=== PATIENT | female | born 2000 | race Caucasian/White ===

== ENCOUNTER 2020-08-03 09:22 | Outpatient (REF) | payer OTHER, SELFPAY | END 2020-08-03 09:23 | disposition home or self-care (01) | LOC: HO.LAB 09:22 | PROVIDERS: Visit Provider Internal Medicine | DX: Z20.828 Contact with and (suspected) exposure to other viral communicable diseases (principal) | CPT/HCPCS: C9803; U0003 ==

== ENCOUNTER 2021-03-19 17:53 | Emergency (ER) | payer OTHER, SELFPAY ==
--- NOTE | 2021-03-19 | ECG_ITS ---
Test Reason : OD Blood Pressure : / mmHG Vent. Rate : 071 BPM Atrial Rate : 071 BPM P-R Int : 150 ms QRS Dur : 098 ms QT Int : 396 ms P-R-T Axes : 066 093 053 degrees QTc Int : 430 ms Poor data quality, interpretation may be adversely affected Normal sinus rhythm with sinus arrhythmia Rightward axis Cannot rule out Anterior infarct (cited on or before 19-MAR-2021) Abnormal ECG When compared with ECG of 19-MAR-2021 19:35, No significant change was found Referred By: Dana Coburn Electronically Signed By:ANTHONY WATERS MD
--- NOTE | 2021-03-19 17:56 | ECG_ITS ---
Test Reason : OD Blood Pressure : / mmHG Vent. Rate : 073 BPM Atrial Rate : 073 BPM P-R Int : 136 ms QRS Dur : 100 ms QT Int : 394 ms P-R-T Axes : 068 095 044 degrees QTc Int : 434 ms Normal sinus rhythm Possible Left atrial enlargement Rightward axis Cannot rule out Anterior infarct , age undetermined Abnormal ECG No previous ECGs available Referred By: Dana Coburn Electronically Signed By:ANTHONY WATERS MD
[2021-03-19 17:57] VITALS: BP 119/78; PULSE 77; RESP 16; TEMP 36.8; O2SAT 100; BMI 19.6
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
--- NOTE | 2021-03-19 18:28 | PC.NURSE ---
pateint mother called for update. per patient its ok to speak to mother about her care. mother updated on plan.
[2021-03-19 19:02] VITALS: BP 104/72; PULSE 98; RESP 16; O2SAT 99
[2021-03-19 20:21] LABS: MANUAL DIFF FLAG NO
[2021-03-19 20:27] LABS: Basophils Percent Auto 0.2 % (0-2); Eosinophils Percent Auto 0.2 % (0-4); Hematocrit 37.9 % (37-47); Hemoglobin 13.2 g/dl (12.0-16.0); Imm Gran Abs Auto 0.05 X10*3/uL (0.00-0.03); Imm Gran Pct Auto 0.4 % (0.0-0.4); Lymphocytes Absolute Auto 2.1 X10*3/uL (1.2-4.9); Lymphocytes Percent Auto 17.2 % (20-40); Mean Corpuscular HGB Conc 34.8 g/dl (31.0-35.0); Mean Corpuscular Hemoglobin 30.7 pg (27.0-33.0); Mean Corpuscular Volume 88.1 fL (80-98); Mean Platelet Volume 11.1 fL (9.4-12.3); Monocytes Absolute Auto 0.9 X10*3/uL (0.1-1.2); Neutrophils Absolute Auto 9.2 X10*3/uL (2.0-8.3); Platelet Count 221 X10*3/uL (160-400); White Blood Count 12.2 X10*3/uL (4.8-10.8)
[2021-03-19 20:52] LABS: Anion Gap 15 (12-20); Blood Urea Nitrogen 12 mg/dL (9-16); Calcium 9.8 mg/dL (8.4-10.2); Carbon Dioxide 19 mmol/L (22-29); Chloride 109 mmol/L (96-108); Creatinine Clr Calc Pharmacy 84.4; Estimated Glomerular Filt Rate > 60; Ethanol < 10 mg/dL; Glucose Random 87 mg/dL (60-115); Magnesium 2.1 mg/dL (1.6-2.6); Sodium 139 mmol/L (135-145)
[2021-03-19 20:52] LABS: Amphetamine Screen Urine Not Detected (Not Detect); Barbiturates, Urine Not Detected (Not Detect); Benzodiazepines Screen Urine Not Detected (Not Detect); Cannabinoid Screen Urine POSITIVE (Not Detect); Cocaine Screen Urine Not Detected (Not Detect); Opiate Screen Urine Not Detected (Not Detect); Phencyclidine Screen Urine Not Detected (Not Detect)
[2021-03-19 20:55] LABS: Acetaminophen LAB < 1 mcg/mL (<30); Alanine Aminotransferase 15 U/L (0-31); Albumin Level 4.6 g/dL (3.5-5.0); Alkaline Phosphatase 57 U/L (39-117); Aspartate Amino Transferase 23 U/L (5-31); Bilirubin Direct 0.6 mg/dL (0.0-0.5); Bilirubin Total 1.7 mg/dL (0.0-1.0); Salicylate < 5.0 mg/dL (15-30); Total Protein 7.2 g/dL (6.5-8.0)
[2021-03-19 20:57] VITALS: BP 114/71; PULSE 71; RESP 16; O2SAT 98
[2021-03-19 20:58] LABS: Troponin-I High Sensitivity < 3.5 ng/L (<3.5-17.0)
[2021-03-19 21:04] LABS: Glucose Urine UA NEG (NEG); Leukocyte Esterase Urine NEG (NEG); Nitrite Urine NEG (NEG); Specific Gravity - Urine >= 1.030 (1.005-1.025); Urine Blood TRACE (NEG); Urine Ketones >=80 MG/DL (NEG); Urine Protein 1+ MG/DL (NEG-TRACE)
[2021-03-19 21:22] LABS: Appearance Urine CLOUDY; Color Urine YELLOW
[2021-03-19 21:25] LABS: UPreg QC Valid YES; Urine Pregnancy NEGATIVE (NEGATIVE)
[2021-03-19 21:56] LABS: Bacteria Urine TRACE /LPF; RBC Urine 0-2 /HPF (0); Squamous Epithelial Cell Urine TRACE /LPF; WBC Urine 0-2 /HPF (0-4)
[2021-03-19 21:57] LABS: Granular Casts Urine 0-2 /LPF
[2021-03-19 21:58] LABS: Amorphous Sediment Urine 2+ /LPF
[2021-03-20 00:15] VITALS: BP 131/80; PULSE 94; RESP 16; TEMP 36.8; O2SAT 97
[2021-03-20 00:18] LABS: COVID-19 Test Negative (Negative); IDNOW Serial# 9DD0AD1C
--- NOTE | 2021-03-20 03:06 | MHC.CARE ---
CARE team evaluation completed. Plan of care is for inpt psychiatric admission. Sect 12a has been signed and placed in pt's chart for safety and containment pending facility admission.
--- NOTE | 2021-03-20 06:17 | PC.NURSE ---
Patient have been sleeping since 3.30 am, patient was not happy when care team made patient aware of her disposition, section 12 Inpatient Bed search, patient was tearful and upset, stated she wants to go home, patient was made aware of the process and the seriousness of her OD attempt, currently in bed appears sleeping, no distress observed/reported, will continue to monitor.,
--- NOTE | 2021-03-20 07:02 | PC.NURSE ---
patient remains at rest at present respirations even and unlabored, patient appears in no distress
[2021-03-20 09:29] VITALS: BP 106/67; PULSE 66; RESP 16; TEMP 36.4; O2SAT 98
--- NOTE | 2021-03-20 13:32 | MHC.CARE ---
CARE met w pt this am and pt was requesting to talk with someone . Pt was seated in the common area with TV and her mother Joann ([phone]) was present. T/w offered to meet with pt and mother at their request, in pts private room. Pt was seeking to correct her record and she wanted a chance to tell her story . Pt stated that she never made suicidal statements to the police when she and her BF were stopped by police last night. She stated she told them my head wasn't right and was upset at the idea that her record states that she took an intentional OD . This point appeared to be of serious concern to her and she feels she was not able to explain herself more last night. Pts mother was seated next to pt nodding in agreement and asking that the ED reconsider holding pt. Pt stated that she and her prescriber (Kera Garza) have been playing around with her ritalin dosing in order to find the right dose . Pt stated that she began feeling anxious while on this med and she stated she does not plan to continue with this. She stated her appt with her prescriber is 03/29 but she planned to reschedule to sooner appt if possible and planned to ask for alternate medications. Pts mother stated that the bottle of ritalin is locked up at her mothers safely and pt further denied interest attempting to use this med. Pt denied current desire to OD, misuse meds or engage in self harm. Pt stated that she carries a hx of self injury via head banging and superficial cutting however she denied urges currently. Pt hoped a plan would be made to refer her to PHP (which she reported has been helpful historically) and safety plan to stay with her mother or mother stay with her in order to discharge home. Pts mother was in full agreement to assume this risk and made it clear that she felt her daughter was not suicidal and never said she was . Pt stated it will not help me to sit around in here with a bunch of people . Pt has family and friends whom she stated she feels safe to be with and will refer herself back if acuity arises. Pt made it clear she was aware of how to seek crisis services or ED and what signs/sxs to watch for to indicate she needs more support. Pt denied having AVH, delusions, and denied feeling aggressive urges / homicidal ideation. Pt was willing to further safety plan with CARE team and ED.
== END 2021-03-20 14:26 | disposition home or self-care (01) ==
PROVIDERS: Nurse Practitioner Family; Emergency Provider Internal Medicine; PCP Nurse Practitioner Family
DX: T43.622A Poisoning by amphetamines, intentional self-harm, initial encounter (principal); S00.83XA Contusion of other part of head, initial encounter; S40.812A Abrasion of left upper arm, initial encounter; S40.811A Abrasion of right upper arm, initial encounter; S40.022A Contusion of left upper arm, initial encounter; S40.021A Contusion of right upper arm, initial encounter; X58.XXXA Exposure to other specified factors, initial encounter; Z20.822 Contact with and (suspected) exposure to COVID-19; F43.10 Post-traumatic stress disorder, unspecified; F12.90 Cannabis use, unspecified, uncomplicated; F17.210 Nicotine dependence, cigarettes, uncomplicated; Y93.9 Activity, unspecified; Y92.9 Unspecified place or not applicable; Y99.9 Unspecified external cause status
CPT/HCPCS: 36415; 80048; 80076; 80143; 80179; 80307; 81001; 81003; 81025; 82077; 83735; 84484; 85025; 87635; 93005; 99283; 99285; 99291